=== PATIENT | female | born 2000 | race Caucasian/White ===

== ENCOUNTER 2020-11-05 08:45 | Outpatient (CLI) | payer OTHER ==
--- NOTE | 2020-11-05 11:20 | ULT ---
Exam: Right axillary ultrasound HISTORY: Right axillary mass. TECHNIQUE: Targeted sonographic imaging of the right axilla was performed. Static images were reviewed. FINDINGS: There is a soft tissue echotexture focus with a hyperechoic hilum measuring 1.4 x 0.6 cm. There does appear to be flow within the hyperechoic focus suggesting a fatty hilum of a lymph node. IMPRESSION: Sonographic features favor a right axillary lymph node with preserved fatty hilum. Continued surveill ance as warranted. Transcribed Date/Time: 11/05/2020 11:26 AM
== END 2020-11-05 08:46 | disposition home or self-care (01) ==
LOC: BICULT 08:45
DX: R22.2 Localized swelling, mass and lump, trunk (principal)
CPT/HCPCS: 76999